=== PATIENT | male | born 2000 | race Caucasian/White ===

== ENCOUNTER 2020-01-22 06:48 | Emergency (ER) | payer OTHER ==
[2020-01-22 07:09] VITALS: BP 168/75
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
--- NOTE | 2020-01-22 07:40 | XRAY Report ---
Reason: pain/injury Procedure Date: 01/22/2020 Accession Number: [id number] / [id number] Procedure: XR - Elbow 3 View RT CPT Code: Final Report FULL RESULT: EXAM: RIGHT ELBOW RADIOGRAPHY EXAM DATE: 01/22/2020 07:32 AM. CLINICAL HISTORY: Pain/injury. COMPARISON: None. TECHNIQUE: 3 views. FINDINGS: Bones: No fractures or bone lesions. Joints: No effusion. No subluxation. Soft Tissues: . No soft tissue swelling. No subcutaneous radiopaque foreign bodies. IMPRESSION: No fracture or subluxation identified. [facility]
== END 2020-01-22 08:00 | disposition home or self-care (01) ==
LOC: ED 06:48
DX: S53.401A Unspecified sprain of right elbow, initial encounter (principal); V29.9XXA Motorcycle rider (driver) (passenger) injured in unspecified traffic accident, initial encounter; Y93.55 Activity, bike riding; Y92.410 Unspecified street and highway as the place of occurrence of the external cause
CPT/HCPCS: 99283; 99284